=== PATIENT | male | born 1985 | race Caucasian/White ===

== ENCOUNTER 2022-09-11 13:46 | Emergency (ER) | payer BC ==
[~2022-09-11] VITALS: Ht 188 cm; Wt 133.8 kg
[~2022-09-11 13:46] MED LIST: IBUPROFEN400 MG PO
[2022-09-11 19:00] VITALS: BP 127/76
== END 2022-09-11 19:00 | disposition home or self-care (01) ==
LOC: ED 13:46
DX: S86.111A Strain of other muscle(s) and tendon(s) of posterior muscle group at lower leg level, right leg, initial encounter (principal); X58.XXXA Exposure to other specified factors, initial encounter; Z88.8 Allergy status to other drugs, medicaments and biological substances
CPT/HCPCS: 93971; 99283 25